=== PATIENT | female | born 1995 | race Caucasian/White ===

== ENCOUNTER → 2021-10-27 | Day surgery (SDC) | payer BC ==
[~2021-10-27] MED LIST: AMITRIPTYLINE H10 MG PO; LEXAPRO10 MG PO; VITAMIN C1000 MG PO; VOLNEA 0.15-0.1 EACH PO; ZINC50 M2 PO
[2021-10-27 10:54] LABS: HEMOGLOBIN 12.4 gm/dl (12.3-15.3); RED BLOOD COUNT 3.93 M/UL (4.00-5.10); WHITE BLOOD COUNT 4.6 K/UL (4.5-11.0)
== END | disposition home or self-care (01) ==
LOC: OR 09:00
PROVIDERS: Obstetrics & Gynecology
DX: N30.10 Interstitial cystitis (chronic) without hematuria (principal); N94.10 Unspecified dyspareunia; N94.89 Other specified conditions associated with female genital organs and menstrual cycle; K59.00 Constipation, unspecified; Z72.0 Tobacco use; Z20.822 Contact with and (suspected) exposure to COVID-19
CPT/HCPCS: 81001; 84702; 85025; J1100; J1644; J1885; J2001; J2250; J2405; J2704; J3010; J7030; J7120; U0002